=== PATIENT | male | born 2000 ===

== ENCOUNTER 2022-04-24 15:48 | Emergency (ER) | payer OTHER, SELFPAY ==
[2022-04-24 15:54] VITALS: BP 134/64; PULSE 60; RESP 18; TEMP 36.7; O2SAT 99
[2022-04-24] MEDS: Tetracaine 0.5% 4 ML BTL OP (18:03)
[2022-04-24] MEDS: Fluorescein STRIPS 100/BOX 1 MG OP (18:03)
[2022-04-24] MEDS: Balanced Salt Solution 15 ML BTL OP (18:04)
--- NOTE | 2022-04-24 18:06 | W.ED.GENAD ---
Discharge Plan Disposition Patient Disposition: HOME Condition: Stable Discharge Details Clinical Impression: Abrasion of cornea, left Primary Care Provider: Unknown,Unknown ED Provider: Tania Sun Home Meds and New Rx's Prescriptions: No Action No Known Home Meds Discharge Instructions Instructions: Erythromycin (Into the eye), Corneal Abrasion (ED) Additional Instructions: Use the eye ointment as directed. Try not to use rub or scratch eye. Wear sunglasses if this improves your discomfort. Please take Tylenol or Ibuprofen with food every 4-6 hours as needed for pain and swelling. Please follow-up with [facility] eye care next week. [facility] [address] [place] [address] Phone:? tel: Discharge Data Discharge Date/Time-TO BE ENTERED AT DEPARTURE: 04/24/22 18:20 Medical Decision Making Eye exam performed with Enrique lamp tetracaine and fluorescein strip, corneal abrasion noted at approximately 3:00 which is Arrow shaped. No visualized foreign body. Patient eye was irrigated with normal saline stream. Will give erythromycin ointment and discharged and follow-up with [facility] eye care. HPI General Mode of arrival: ambulatory. Date/Time Provider Initiated Documentation: 04/24/22 15:58. Limitations to Documentation: no limitations. Information obtained by: patient and RN notes reviewed. HPI Narrative: 21-year-old male presents to the ER with chief complaint of left thigh foreign body sensation approximately 2 hours prior to arrival. Mom reports that initially there was a bubble to the cornea which has since resolved. He denies any visual disturbances or any other complaints. Related Data Home Medications Medication Instructions Recorded Confirmed Unknown [No Known Home Meds] 04/24/22 04/24/22 Allergies Allergy/AdvReac Type Severity Reaction Status Date / Time Penicillins Allergy Itching Unverified 04/24/22 18:10 General Stated Complaint: EyeProblem HEIDE: 4 Review of Systems All systems reviewed & are unremarkable except as noted in HPI and below Eyes Eyes: Reports as per HPI, Denies eye discharge, Reports irritation, Denies loss of vision and Denies seeing flashes Neurologic Neurologic: Denies loss of vision PFSH All Active Problems (Updated 07/02/22 @ 18:12 by Tania Sun NP) Abrasion of cornea, left (Acute) Social History Smoking/Tobacco Use Status: Never Smoking risk assessment performed?: Yes Alcohol Intake: never Drug use: Never Substance use type: does not use Do you feel safe at home: Yes Do you feel safe in your relationship?: Yes Exam Eyes Visual Perez: normal visual perez by confrontation Alignment and Position: alignment normal Periorbital: periorbital findings normal Eyelids: eyelids normal Conjunctivae: conjunctival abnormality left conjunctival injection diffuse; Negative for conjunctival icterus, without discharge and without subconjunctival hemmorhages Cornea: corneas abnormal on the left fluorescein used and abrasion at the following clock position (3 oclock) and fluorescein used Pupils: PERRL, normal by confrontation and accommodation normal EOM: EOM intact bilaterally Direct ophthalmoscopy: normal light reflex and anterior chamber normal Eyes/upper lids images: 1. Corneal Abrasion no foreign body visualized. Course Vital Signs Vital signs: Vital Signs Temperature 36.7 C 04/24/22 15:54 Pulse 60 04/24/22 15:54 Respiratory Rate 18 04/24/22 15:54 Blood Pressure 134/64 04/24/22 15:54 Pulse Oximetry 99 04/24/22 15:54 Temperature 36.7 C 04/24/22 15:54 Temperature Source Temporal Artery Scan 04/24/22 15:54 Pulse 60 04/24/22 15:54 Respiratory Rate 18 04/24/22 15:54 Respiratory Effort Non-Labored 04/24/22 16:44 Blood Pressure 134/64 04/24/22 15:54 Blood Pressure Position Sitting 04/24/22 15:54 Pulse Oximetry 99 04/24/22 15:54 Oxygen Delivery Method Room Air 04/24/22 15:54 Oxygen Flow Rate 0 04/24/22 15:54
[2022-04-24] MEDS: Erythromycin Ophth Oint 3.5 GM TUBE OP (18:18)
== END 2022-04-24 18:20 | disposition home or self-care (01) ==
PROVIDERS: Emergency Provider Registered Nurse Emergency
DX: S05.02XA Injury of conjunctiva and corneal abrasion without foreign body, left eye, initial encounter (principal); X58.XXXA Exposure to other specified factors, initial encounter
CPT/HCPCS: 99283

== ENCOUNTER 2023-06-15 19:40 | Emergency (ER) | payer OTHER, SELFPAY ==
[2023-06-15 20:09] VITALS: BP 132/76; PULSE 65; RESP 15; TEMP 37.2; O2SAT 97
--- NOTE | 2023-06-15 20:15 | DI.RAD_ITS ---
Exam(s) XR FOOT RT COMPLETE EXAM: XR FOOT RT COMPLETE CLINICAL HISTORY: right lateral foot injury. TECHNIQUE: 2D digital imaging was performed. COMPARISON: No exams were available for comparison FINDINGS: 3 views Small avulsion fracture noted off the dorsal aspect of the navicular with some overlying soft tissue swelling. No other fractures identified. No diastasis of the Lisfranc joint. No degenerative chan es. No erosions. Small radiopaque foreign body noted in the soft tissues of the 3rd toe. IMPRESSION: Avulsion fracture at the dorsal aspect of the navicular. Correlation with site of tenderness recomme nded. DATA REPOSITORY: RADIATION DOSE DELIVERED:
--- NOTE | 2023-06-15 20:57 | DI.VRAD_ITS ---
PROCEDURE INFORMATION: Exam: XR Right Foot Exam date and time: 06/15/2023 8:42 PM Age: 22 years old Clinical indication: Injury or trauma; Fall; Sprain or strain; Injury details: Right lateral foot injury TECHNIQUE: Imaging protocol: Radiologic exam of the right foot. Views: 3 or more views. COMPARISON: No relevant prior studies available. FINDINGS: Bones/joints: Bone mineralization is age-appropriate. There appears to be an avulsion fracture arising from the dorsal aspect of the tarsal navicular. No evidence of dislocation. The joint spaces are adequately preserved; no significant degenerative narrowing and no bony erosion seen. Soft tissues: No radiopaque foreign body present. There is soft tissue swelling present. Small areas radiopacity within the soft tissues of the right 3rd and 4th toe may represent soft tissue foreign bodies. IMPRESSION: 1. There appears to be an avulsion fracture arising from the dorsal aspect of the tarsal navicular 2. There is soft tissue swelling present. 3. Small areas radiopacity within the soft tissues of the right 3rd and 4th toe may represent soft tissue foreign bodies. Dictated and Authenticated by: Mandeep Copeland MD. Ordering:SURAJ Burrell MD
[2023-06-15 21:29] VITALS: BP 119/69; PULSE 64; RESP 17; TEMP 36.9; O2SAT 98
--- NOTE | 2023-06-16 12:45 | NUR.NOTE ---
Addendum entered by Lucia Zhao 06/16/23 12:47: Mother, Kimberlee [phone] Original Note: Mother and patient called asking for note that he is non weight bearing for 6 to 8 weeks so that pt can park closer to buildings when he goes to college in [place]. Dr. Garcia did a work note for August 01, 2023l non weightbearing until cleared by ortho or this date. Nursing Note:
--- NOTE | 2023-06-18 17:13 | ED.GENADUL_ITS ---
Discharge Plan Disposition Patient Disposition: Home Discharge Details Clinical Impression: Metatarsal fracture Primary Care Provider: Unknown,Unknown ED Provider: Ashanti Campoverde Home Meds and New Rx's Prescriptions: No Action No Known Home Meds Discharge Instructions Additional Instructions: follow-up with orthopedics tomorrow call by 10 if you don't receive a call motrin/tylenol as needed for pain ice, elevate no weightbearing until cleared by orthopedics Referrals: Moises Khanna MD [ [facility]FF [facility]YSICIAN] - Discharge Data Discharge Date/Time-TO BE ENTERED AT DEPARTURE: 06/15/23 21:45 Medical Decision Making 22-year-old male presenting with right lateral foot pain Denies any additional pain complaints, specifically no tenderness to right ankle or right proximal foot, neurovascularly intact, no tenderness to right ankle X-ray shows evidence of small avulsion fracture over metatarsal, placed in a boot and crutches, referred to orthopedics Return precautions reviewed and patient expressed understanding HPI General Date/Time Provider Initiated Documentation: 06/15/23 20:23 . 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 He denies any additional injuries. States he is unable to ambulate secondary to pain. Related Data Home Medications Medication Instructions Recorded Confirmed Unknown [No Known Home Meds] 04/24/22 06/15/23 Allergies Allergy/AdvReac Type Severity Reaction Status Date / Time Penicillins Allergy Itching Unverified 06/15/23 20:09 General Stated Complaint: Orthopedic HEIDE: 4 PFSH All Active Problems (Updated 06/15/23 @ 21:04 by ESTHER Mendez) Metatarsal fracture (Acute) Social History Smoking/Tobacco Use Status: Never Smoking risk assessment performed?: Yes Alcohol Intake: never Drug use: Never Substance use type: does not use Housing: house Do you feel safe at home: Yes Do you feel safe in your relationship?: Yes Course Vital Signs Vital signs: Vital Signs Temperature 37.2 C 06/15/23 20:09 Pulse 65 06/15/23 20:09 Respiratory Rate 15 06/15/23 20:09 Blood Pressure 132/76 06/15/23 20:09 Pulse Oximetry 97 06/15/23 20:09 Temperature 36.9 C 06/15/23 21:29 Temperature Source Temporal Artery Scan 06/15/23 20:09 Pulse 64 06/15/23 21:29 Respiratory Rate 17 06/15/23 21:29 Respiratory Effort Normal, Non-Labored 06/15/23 20:13 Blood Pressure 119/69 06/15/23 21:29 Blood Pressure Position Sitting 06/15/23 20:09 Pulse Oximetry 98 06/15/23 21:29 Oxygen Delivery Method Room Air 06/15/23 20:09 Oxygen Flow Rate 0 06/15/23 20:09 Pain Level 3 06/15/23 21:29
--- NOTE | 2023-06-21 07:49 | NUR.NOTE ---
Accessed chart for [facility] billing purposes.Nursing Note:
== END 2023-06-15 21:45 | disposition home or self-care (01) ==
PROVIDERS: Emergency Provider Physician Assistant
DX: S92.254A Nondisplaced fracture of navicular [scaphoid] of right foot, initial encounter for closed fracture (principal); X50.1XXA Overexertion from prolonged static or awkward postures, initial encounter; Y93.89 Activity, other specified; Y92.69 Other specified industrial and construction area as the place of occurrence of the external cause; Y99.0 Civilian activity done for income or pay
CPT/HCPCS: 99283; 73630